=== PATIENT | male | born 1970 | race Hispanic/Latino ===

== ENCOUNTER 2024-07-13 10:39 | Emergency (ER) | payer SELFPAY ==
[~2024-07-13] VITALS: Ht 170.2 cm; Wt 99.8 kg
[2024-07-13] MEDS: ceFAZolin SODIUM 1 GM VIAL IM SCH (12:21)
[2024-07-13] MEDS: teTANUS/diphthERIA TOXOID [ADULT] 0.5 ML VIAL IM ONE (12:22)
--- NOTE | 2024-07-13 12:48 | ERN ---
General Chief Complaint: Laceration/Avulsion Stated Complaint: LACERATION ON FOOT Time Seen by MD: 12:31 Time Seen by Midlevel: 12:31 Source: patient History of Present Illness Initial Comments Patient is a 53-year-old male presenting with a laceration to his left eye. Patient states he was working when he accidentally cut himself with a sheet of metal. Denies any symptoms. Denies being up-to-date with his tetanus. Allergies: Coded Allergies: No Known Allergies (Unverified Allergy, Unknown, 07/13/24) Past Medical History Past Medical History: No Pertinent History Past Surgical History: None ROS Dictation CONSTITUTIONAL: Negative except for HPI HEAD/FACE: Negative except for HPI EENT: Negative except for HPI RESPIRATORY: Negative except for HPI GASTROINTESTINAL/ABDOMINAL: Negative except for HPI GENITOURINARY: Negative except for HPI MUSCULOSKELETAL: Negative except for HPI INTEGUMENTARY: Negative except for HPI NEUROLOGICAL/PSYCH: Negative except for HPI HEMATOLOGIC/LYMPHATIC: Negative except for HPI All Systems Negative, Except as noted above. 13 point review of systems assessed and all negative except for above. Physical Exam Physical Exam Dictation PHYSICAL EXAM: GENERAL: alert,, awake oriented x 3 HEENT: EOMI, Sclera non icteric, moist mucosa NECK: Supple, no JVD, trachea midline LUNGS: Clear breath sounds bilaterally. No wheezes HEART: Regular rate and rhythm. Normal S1 and S2, without murmurs ABD: Abdomen soft, nontender. Bowel sounds present EXT: No clubbing or cyanosis, NEURO: Alert and oriented to person, follows commands SKIN: 4 cm superficial linear laceration to the left medial thigh, no foreign body visualized, minimal active bleeding MDM MDM: Patient is a 53-year-old male presenting with a laceration to the left medial thigh that occurred just prior to arrival. On exam there is a 4 cm superficial linear laceration to the left medial thigh. There was no active bleeding there was no foreign body visualized. The laceration was thoroughly irrigated with normal saline and wound cleanser. The laceration was repaired with seven simple interrupted 4-0 Ethilon sutures with no complications. Patient was given wound care instructions and was discharged home. Patient is to remove sutures in 7-10 days. Tetanus vaccination given in the ER. Differential diagnosis: Laceration, abrasion, foreign body There are no social concerns with this patient. Prescription drug management Prescriptions will include: None Medical management and examination interpretation discussions were had by me with other qualified healthcare professionals as indicated for the patient's care. ED Course Orders Procedure Category Date Status Time Femur 2 Vw Left RAD 07/13/24 Logged 11:46 Tetanus,Diphtheria PHA 07/13/24 Complete Tox [Adult] (Diphther 12:00 Cefazolin Sodium PHA 07/13/24 Complete (Cefazolin Sodium 500 11:46 Cefazolin Sodium 1 Gm PHA 07/13/24 In Process Vial (Ancef 1 Gm V 12:30 Water For PHA 07/13/24 Complete Injection,Sterile 12:18 Current Medications Medications (Trade) Dose Ordered Sig/Yuan Route PRN Reason Start Time Stop Time Status Last Admin Dose Admin Cefazolin Sodium (ANCEF 1 gm vial) 1 gm ONCE IM 07/13/24 12:30 07/23/24 12:29 07/13/24 12:21 Cefazolin Sodium (ceFAZolin SODIUM 500 mg vial) 500 mg ONCE STAT IM 07/13/24 11:46 07/13/24 12:05 DC Sterile Water (Sterile Water, Injection) 10 ml STK-MED ONCE .ROUTE 07/13/24 12:18 07/13/24 12:19 DC 07/13/24 12:22 Tetanus/ Diphtheria Toxoids Adsorbed (DiphthERIA-teTANUS TOXOID [ADULT]/ DECAVAC) 0.5 ml ONCE ONCE IM 07/13/24 12:00 07/13/24 12:01 DC 07/13/24 12:22 Vital Signs Date Time Temp Pulse Resp B/P (MAP) Pulse Ox O2 Delivery O2 Flow Rate FiO2 07/13/24 10:51 98.6 83 16 179/94 97 Room Air 0 Procedure Dictation Procedure Name: Laceration Repair Indication: Reduce risk of infection Location: 4 cm laceration to left medial thigh Pre-Procedure Diagnosis: Laceration Post-Procedure Diagnosis: Repaired Laceration Informed consent was obtained before procedure started. PROCEDURE: The appropriate timeout was taken. The area was prepped and draped in the usual sterile fashion. Local anesthesia was achieved using 4cc of Lidocaine 1% without epinephrine. The wound was copiously irrigated. 7 4-0 Ethilon simple interrupted sutures were placed. Estimated blood loss was less than 0.5 mL. A dressing was applied to the area and anticipatory guidance, as well as standard post-procedure care, was explained. Return precautions are given. The patient tolerated the procedure well without complications. Follow-up visit set for suture removal and evaluation of the laceration. DX & DISP Disposition: Discharge Departure Impression: Primary Impression: Laceration of left thigh Condition: Stable Additional Instructions: Your laceration was successfully repaired with seven sutures. These will need to be removed in 7-10 days. If you develop any surrounding redness, abnormal discharge, or foul odor please report to the ER for further evaluation. Please keep area clean and dry. Referrals: SELF,REFERRAL (PCP) Time of Disposition: 12:44 I have reviewed the case, and I agree with, Diagnosis and Plan I performed the substantive portion of the visit. I have reviewed and personally made and approve the management plan that is documented in the note by myself or the MAHAMED. I acknowledge for responsibility for the patient's management plan. RYAN SRIVASTAVA Jul 13, 2024 12:48
[2024-07-13 12:54] VITALS: BP 127/81; PULSE 74; RESP 16; TEMP 98.6; O2SAT 99
--- NOTE | 2024-07-13 13:01 | HMCIMG ---
FEMUR 2 VW LEFT HISTORY: Laceration COMPARISON: None TECHNIQUE: 4 images of left femur were obtained. FINDINGS: There is no acute displaced fracture or dislocation. Degenerative changes are seen. IMPRESSION: 1. Findings as described above.
== END 2024-07-13 12:57 | disposition home or self-care (01) ==
LOC: EDH 10:39
DX: S71.112A Laceration without foreign body, left thigh, initial encounter (principal); W45.8XXA Other foreign body or object entering through skin, initial encounter; Y93.89 Activity, other specified; Y92.89 Other specified places as the place of occurrence of the external cause; Y99.8 Other external cause status
CPT/HCPCS: 99284; 90714; 73552; 90471; 12002; 96372; J0690